=== PATIENT | male | born 1955 | race Caucasian/White ===

== ENCOUNTER 2016-07-12 16:58 | Emergency (ER) | END 2016-07-12 17:55 | disposition home or self-care (01) | DX: H60.93 Unspecified otitis externa, bilateral (principal) ==

== ENCOUNTER 2018-09-04 09:35 | Emergency (ER) | payer OTHER ==
[~2018-09-04] VITALS: Wt 57.3 kg
[~2018-09-04 09:35] MED LIST: CIPR500T4 PO; IBUP-1542 PO; NPH10OT BOTH EARS; TRAM50TA2 PO
[2018-09-04 09:39] VITALS: BP 171/79; PULSE 70; RESP 18
[2018-09-04] MEDS ORDERED: CALC300T4 PO (11:30)
[2018-09-04] MEDS ORDERED: OMEP20CA16 PO (11:30)
--- NOTE | 2018-09-04 13:52 | ERD ---
ER Documentation Chief Complaint Chief Complaint sore throat x 5 months, seen at [facility] advised to see ent HPI 63-year-old male presenting with complaints of sore throat x5 months. Patient was recommended by his primary to see an ENT however he has been unable to and he is presenting to the ER today with continued irritation. He states he has a burning sensation in his abdomen. Denies any fevers. He took amoxicillin for 1 week with no alleviation of symptoms. He describes it as a burning type sensation. He is taking Pepcid with no alleviation. Denies other medical problems. NKDA. Surgical history denies. Social history denies ROS All systems reviewed and are negative except as per history of present illness. Medications Home Meds Active Scripts Calcium Carbonate* (Tums X-Str) 300 Mg Tab.chew, 300 MG PO BID, #60 TAB.CHEW Prov:APRIL GARCIA PA-C 09/04/18 Omeprazole* (Omeprazole*) 20 Mg Capsule.dr, 20 MG PO DAILY, #30 Prov:APRIL GARCIA PA-C 09/04/18 Ibuprofen* (Motrin*) 600 Mg Tab, 600 MG PO Q6, #30 TAB Prov:KEENA WAHL PA-C 07/12/16 Neomycin/Polymyxin/Hydrocort* (Cortisporin* Otic) 10 Ml Susp, 4 DROP BOTH EARS QID for 7 Days, EA Prov:KEENA WAHL PA-C 07/12/16 Ibuprofen* (Motrin*) 600 Mg Tab, 600 MG PO Q6, #20 TAB Prov:ALMA BARRON MD 03/15/16 Tramadol HCl (Tramadol HCl) 50 Mg Tablet, 50 MG PO Q4 PRN for PAIN, #20 TAB Prov:ADELSO SALOMON PA-C 02/09/16 Ciprofloxacin Hcl* (Ciprofloxacin Hcl*) 500 Mg Tablet, 500 MG PO BID for 7 Days, TAB Prov:ADELSO SALOMON PA-C 02/09/16 Allergies Allergies: Coded Allergies: No Known Allergy (Unverified , 07/19/14) PMhx/Soc Hx Alcohol Use: No Hx Substance Use: No Hx Tobacco Use: No FmHx Family History: No diabetes, No coronary disease, No other Physical Exam Vitals Vital Signs Date Temp Pulse Resp B/P (MAP) Pulse Ox O2 O2 Flow FiO2 Time Delivery Rate 09/04/18 97.8 70 18 171/79 99 09:39 (109) Physical Exam GENERAL: The patient is well-appearing, well-nourished, in no acute distress HEENT: Atraumatic. Conjunctivae are pink. Pupils equal, round, and reactive to light. There is no scleral icterus. Tympanic membranes clear bilaterally. Oropharynx clear. NECK: C-spine is soft and supple. There is no meningismus. There is no cervical lymphadenopathy. CHEST: Clear to auscultation bilaterally. There are no rales, wheezes or rhonchi. HEART: Regular rate and rhythm. No murmurs, clicks, rubs or gallops. Procedures/MDM MDM: 63-year-old male presenting with sore throat. Patient's exam is concerning for acid reflux. I have low suspicion for acute bacterial infection. Patient's exam is non-concerning. Patient describes his pain as a burning sensation from his abdomen which is likely indicative of acid reflux. Patient has no difficulty swallowing and vitals are stable. I do not feel that imaging or blood work is indicated at this time. I will trial patient on a different antiacid medication and recommend that he follow-up as planned with his primary doctor. Patient is told if he starts having fevers or difficulty swallowing to return to the ER for further imaging or blood work. I have low suspicion for cardiac or pulmonary emergency. Vitals are stable patient does not have pain in the associated regions. All questions answered at discharge Departure Diagnosis: Primary Impression: GERD (gastroesophageal reflux disease) Condition: Stable Patient Instructions: Gerd (Adult) Referrals: [facility] YOU HAVE RECEIVED A MEDICAL SCREENING EXAM AND THE RESULTS INDICATE THAT YOU DO NOT HAVE A CONDITION THAT REQUIRES URGENT TREATMENT IN THE EMERGENCY DEPARTMENT. FURTHER EVALUATION AND TREATMENT OF YOUR CONDITION CAN WAIT UNTIL YOU ARE SEEN IN YOUR DOCTORS OFFICE WITHIN THE NEXT 1-2 DAYS. IT IS YOUR RESPONSIBILITY TO MAKE AN APPOINTMENT FOR FOLOW-UP CARE. IF YOU HAVE A PRIMARY DOCTOR --you should call your primary doctor and schedule an appointment IF YOU DO NOT HAVE A PRIMARY DOCTOR YOU CAN CALL OUR PHYSICIAN REFERRAL HOTLINE AT IF YOU CAN NOT AFFORD TO SEE A PHYSICIAN YOU CAN CHOSE FROM THE FOLLOWING [facility]IATRIC HOSPITAL CLINICS [facility] [address] [facility] [address] [facility] [address] [facility] [address] [facility] [address] [facility]. [facility] [address] Additional Instructions: FOLLOW UP WITH YOUR PRIMARY CARE PHYSICIAN TOMORROW.Return to this facility if you are not improving as expected. APRIL GARCIA PA-C September 04, 2018 13:52
== END 2018-09-04 13:13 | disposition home or self-care (01) ==
LOC: FTE 09:35
DX: K21.9 Gastro-esophageal reflux disease without esophagitis (principal)
CPT/HCPCS: 99283